=== PATIENT | female | born 1995 | race Two or more races ===

== ENCOUNTER 2023-01-15 22:38 | Emergency (ER) | payer MEDICAID ==
[~2023-01-15] VITALS: Ht 170.2 cm; Wt 77.1 kg
--- NOTE | 2023-01-16 00:32 | NUR ---
PT SIGNED WAIVER FORM Addendum: 01/16/23 at 0115 by KIRSTIE URINE COLLECTED AND SENT TO LAB
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
--- NOTE | 2023-01-16 01:52 | NUR ---
IV LAC #18G S/L BLOOD COLLECTED AND SENT TO LAB
[2023-01-16] MEDS ORDERED: IBUPROFEN 600 MG TABLET ONE (01:54)
--- NOTE | 2023-01-16 01:57 | NUR ---
Motrin 600mg Po given as ordered. Pt care continue.
[2023-01-16] MEDS ORDERED: IBUPROFEN 600 MG TABLET PO ONE (02:00)
[2023-01-16] MEDS ORDERED: IOHEXOL-300 100 ML VIAL IV ONE (02:14)
[2023-01-16] MEDS ORDERED: IV NS 0.9% 250 ML IV ONE (02:15)
[2023-01-16] MEDS ORDERED: CT SWABBABLE VALVE TRANS SET 1 EA INFUS.SET MC ONE (02:15)
--- NOTE | 2023-01-16 02:25 | NUR ---
Pt is noted off to CT . Pt care continue.
[2023-01-16 02:27] LABS: BILIRUBIN,URINE NEGATIVE (NEGATIVE); COLOR,URINE YELLOW (YELLOW); LEUKOCYTE ESTERASE ,URINE NEGATIVE (NEGATIVE); NITRITE, URINE NEGATIVE (NEGATIVE); PH,URINE 7.5 (5.0-8.0); PROTEIN,URINE NEGATIVE (NEGATIVE); UGLUCOSE NEGATIVE (NEGATIVE); UROBILINOGEN,URINE 0.2 EU/dL (0.2)
[2023-01-16 02:29] LABS: BACTERIA,URINE Rare /HPF (None Seen); RBC,URINE 0-2 /HPF (0-2); SQUAMOUS EPITHELIAL CELL,UR Many /HPF (None Seen); WBC,URINE 0-2 /HPF (0-3)
[2023-01-16 02:30] LABS: BASOPHILS # (AUTO) 0.1 K/uL (0.0-0.2); BASOPHILS % (AUTO) 0.6 % (0.0-2.0); EOSINOPHILS % (AUTO) 1.5 % (0.0-6.0); HEMATOCRIT 40 % (33-45); HEMOGLOBIN 13.4 g/dL (11.5-14.8); LYMPHOCYTES # (AUTO) 3.3 K/uL (0.8-4.8); MEAN CORPUSCULAR HGB CONC 34 g/dl (31.0-36.0); MEAN CORPUSCULAR VOLUME 95 fL (82-100); MONOCYTES # (AUTO) 0.8 K/uL (0.1-1.30); MONOCYTES % (AUTO) 7.1 % (2.0-12.0); NEUTROPHILS # (AUTO) 6.4 K/uL (1.8-8.9); NEUTROPHILS % (AUTO) 59.8 % (43.0-81.0); PLATELET COUNT (AUTO) 314 K/uL (150-450); RED BLOOD CELL COUNT(AUTO) 4.23 MIL/uL (4.0-5.2); WHITE BLOOD COUNT (AUTO) 10.7 K/uL (4.3-11.0)
--- NOTE | 2023-01-16 02:39 | NUR ---
Pt is noted back from CT. Pt care continue.
[2023-01-16 02:43] LABS: CALCIUM, SERUM 9.4 mg/dL (8.5-10.1); CREATININE 0.7 mg/dL (0.6-1.3); POTASSIUM 3.8 mmol/L (3.5-5.1)
[2023-01-16 02:58] LABS: ALBUMIN 3.9 g/dL (3.4-5.0); BILIRUBIN,DIRECT 0.1 mg/dL (0.0-0.2); BILIRUBIN,TOTAL 0.4 mg/dL (0.2-1.0); TOTAL PROTEIN, SERUM 7.6 g/dL (6.4-8.2)
--- NOTE | 2023-01-16 04:00 | NUR ---
Pt care continue as she is been monitor closely and assit as needed while awaits results.
--- NOTE | 2023-01-16 06:00 | NUR ---
Pt care continue as awaits test result while monitor and assist as needed.
--- NOTE | 2023-01-16 07:04 | NUR ---
Pt is noted off the unit as she stable and been discharge to home with all discharge instructions given .
[2023-01-16 07:05] VITALS: BP 118/79
--- NOTE | 2023-01-16 07:05 | NUR ---
DC Patient discharged to home in stable condition. Written and verbal after care instructions given. Patient verbalizes understanding of instruction.
== END 2023-01-16 07:06 | disposition home or self-care (01) ==
LOC: ER 22:40
DX: M25.511 Pain in right shoulder (principal); M25.551 Pain in right hip; Z60.2 Problems related to living alone; V49.9XXA Car occupant (driver) (passenger) injured in unspecified traffic accident, initial encounter; Y93.89 Activity, other specified; Y92.410 Unspecified street and highway as the place of occurrence of the external cause; Y99.8 Other external cause status
CPT/HCPCS: 99285; 72125; 73502; 73030; 70450; 74177; 85025; 80048; 80076; 84703; 81001; 36415; J7050; Q9967